=== PATIENT | female | born 1965 | race Caucasian/White ===

== ENCOUNTER 2017-03-18 17:34 | Inpatient (IN) | payer OTHER ==
[~2017-03-18] VITALS: Ht 154.9 cm; Wt 75.1 kg
[~2017-03-18 17:34] MED LIST: ACYC200C PO; LISI10TA2 PO; VENL37.57 PO
[2017-03-18 17:47] VITALS: BP 92/60; PULSE 108; RESP 23; O2SAT 97
--- NOTE | 2017-03-18 17:47 | ED.REPORT ---
HPI-Dyspnea / Wheezing Date of Service Mar 18, 2017 ED Provider: History of Present Illness: sick for 5 days, started with cough. Went to the urgent care 2 days ago, given azithromycin but did not fill. returned today worse. primary care in [facility]. normally healthy no hx of asthma Nursing Notes Stated Complaint: SHORTNESS OF BREATH Nursing Notes Reviewed: Yes Allergies: Coded Allergies: No Known Allergies (Unverified Allergy, Unknown, 03/18/17) Scheduled Cholecalciferol (Vitamin D3) (Vitamin D3) 1,000 Unit Tab.chew 1,000 UNIT PO DAILY Lisinopril (Lisinopril) 10 Mg Tablet 10 MG PO DAILY Multivitamin (Once Daily) 1 Each Tablet 1 EACH PO DAILY Venlafaxine ER (Venlafaxine ER) 37.5 Mg Cap.er.24h 37.5 MG PO QAM Scheduled PRN Acetaminophen (Acetaminophen) 500 Mg Tablet 500-1,000 MG PO Q6H PRN PRN For Pain Acyclovir (Acyclovir) 400 Mg Tablet 400 MG PO TID x 7 days PRN PRN herpes Ibuprofen (Ibuprofen) 600 Mg Tablet 600 MG PO q6 hours PRN PRN For Pain General Time Seen by MD: 17:47 Chief Complaint Shortness of breath Hx Obtained From: Patient Sudden in Onset?: No Past Medical History Past Medical History Reports: Hypertension, Denies: Asthma, Diabetes mellitus Past Surgical History denies Smoking History Current Every Day Smoker (1/2 pack a day for 35 plus years) Social History Alcohol Use: 1-3 per day (likes white armenian) Drug Use: Denies drug use Occupation lives with partner no work or school 03/18/2017 Ambulatory Status Independent Review of Systems Basic Review of Systems Eyes: Vision NL, No discharge Endocrine: No cold intolerance, No heat intolerance, No weight gain, No weight loss Psychiatric: Normal thought content Physical Exam Initial Vital Signs Vital Signs (First) Date Time Temp Pulse Resp B/P Pulse Ox O2 Delivery O2 Flow Rate FiO2 03/18/17 17:47 37.1 108 23 92/60 97 Room Air Initial VS: Reviewed, Vital signs abnormal Head / Eyes: Atraumatic, Normocephalic, PERRL ENT: Mucous membranes moist, Conjunctiva normal, No scleral icterus Abdomen / GI: Soft, Non-tender, No guarding, No rebound, No distention Back: No CVA tenderness Lymphatic: No lymphadenopathy Extremities: Vascular intact, Neuro intact, No swelling, No tenderness Skin: Warm, Dry, No cyanosis Neurologic: Alert, Oriented, Nonfocal Psychiatric: Mood/affect normal, Behavior normal, Normal thought content General/Constitutional: Awake, Alert Distress / Hydration: Positive: Distress mild Respiratory / Chest: Atraumatic Diminished Breath Sounds: Positive: Decreased bilateral Cardiovascular: Heart rate NL Heart Rate / Rhythm: Positive: Tachycardia Abdomen: Atraumatic, Soft, Non-tender Interpretation & Diagnostics Lab Results Interpretation Result Diagram: 03/18/17 1801 03/18/17 1801 Test 03/18/17 18:01 03/18/17 19:24 White Blood Count 14.2th/mm3 (3.8-10.1) Red Blood Count 3.91mil/mm3 (3.90-5.20) Hemoglobin 12.8g/dL (12.0-15.6) Hematocrit 36.6% (35.0-46.0) Mean Corpuscular Volume 93.6fL (81-100) Mean Corpuscular Hemoglobin 32.7pg (27.0-35.0) Mean Corpuscular Hemoglobin Concent 35.0% (32.0-37.0) Red Cell Distribution Width 12.0% (12.3-15.4) Platelet Count 259bil/L (150-400) Neutrophils (%) (Auto) 86.7% (40-74) Lymphocytes (%) (Auto) 7.6% (14-46) Monocytes (%) (Auto) 3.9% (4-12) Eosinophils (%) (Auto) 0.4% (0-5) Basophils (%) (Auto) 0.1% (0-3) Hold Purple Top Tube Received (Received) Hold Blue Top Tube Received (Received) Sodium Level 123mEq/L (134-144) Potassium Level 3.7mEq/L (3.5-5.2) Chloride Level 84mEq/L (97-108) Carbon Dioxide Level 21mmol/L (18-29) Blood Urea Nitrogen 13mg/dL (6-24) Creatinine 1.11mg/dL (0.57-1.00) Estimat Glomerular Filtration Rate 74mL/min (>59) Glucose Level 124mg/dL (60-99) Calcium Level 9.2mg/dL (8.5-10.1) Total Bilirubin 0.4mg/dL (0.0-1.2) Aspartate Amino Transf (AST/SGOT) 45U/L (0-50) Alanine Aminotransferase (ALT/SGPT) 57U/L (0-32) Alkaline Phosphatase 129U/L (25-150) Troponin T < 0.010ug/L (0.0-0.011) Pro-B-Type Natriuretic Peptide 251.1pg/mL (0-249) Total Protein 8.1g/dL (6.4-8.4) Albumin 3.6g/dL (3.4-5.0) Hold Red Top Tube Received (Received) Hold Bluebell Top Tube Received (Received) Lactic Acid Level 1.6mmol/L (0.4-2.0) CT Chest Interpretation PROCEDURE: CT ANGIO CHEST PULMONARY EMBOLISM ([id number]) INDICATIONS: sob TECHNIQUE: After the administration of intravenous contrast, 2 mm thick sections acquired from the pulmonary apices to the posterior costophrenic angles. 3-dimensional maximum intensity projection (MIP) coronal and sagittal reformats were then acquired through the thorax. For radiation dose reduction, the following was used: automated exposure control, adjustment of mA and/or kV according to patient size. COMPARISON: [facility], CR, XR CHEST 2VW, 03/18/2017, 18:16. FINDINGS: Image quality: Excellent. Pulmonary arteries: Pulmonary arteries are normal in size, and demonstrate no intraluminal filling defects to suggest central pulmonary embolism. Lungs and pleura: Prominent patchy consolidative opacity is present within the left upper lobe extending to the lingula. Small appearance of similar opacity is also noted in the medial left lower lobe. Air bronchograms are present. This corresponds to finding on chest x-ray dated 03/18/17. Mediastinum: Heart size is normal, without pericardial effusion. No mediastinal or hilar adenopathy. However, multiple mediastinal lymph nodes are present. Thoracic aorta is normal in caliber and enhancement. Esophagus is normal in caliber, without hiatal hernia. Bones and chest wall: No suspicious bony lesions. Ribs and thoracic spine appear intact throughout. Thyroid gland is unremarkable. No axillary or supraclavicular adenopathy. Abdomen: Hepatic cyst is noted. Otherwise, visualized upper abdominal solid organs appear normal in the early arterial phase of enhancement. IMPRESSION: 1. No evidence of pulmonary embolism. 2. Prominent consolidative opacity within the left upper lobe extending to the lingula and medial left lower lobe. Finding appears most suggestive of infection or inflammation such as pneumonia. Recommend interval followup study to resolution and exclude presence of underlying mass lesion. Dictated by: Beatrice Alvarado M.D. on 03/18/2017 at 20:51 Approved by: Beatrice Alvarado M.D. on 03/18/2017 at 20:53 Re-Eval/Medical Decision Med Decision/Clinical Course 51 year old female from Urgent care presents for sob. Patient was seen 2 days ago and did not get the medication filled. No sign of any PE. Discharge & Departure Impression: Primary Impression: Pneumonia Laterality: left Lung location: upper lobe of lung Disposition: ADMITTED TO HOSPITAL Referrals: Prakash Subramanian MD (PCP) EDSupervising Provider for APC: Mikal Richmond MD copies to: Prakash Subramanian MD, Sue ARNP Mar 18, 2017 17:47
[2017-03-18] MEDS ORDERED: 0.9% Sodium Chloride 1,000 ML IV ONE ×2 (18:00)
--- NOTE | 2017-03-18 18:34 | DRSVH ---
PROCEDURE: X-RAY CHEST, TWO VIEWS ([id number]) INDICATIONS: SHORTNESS OF BREATH TECHNIQUE: 2 views of the chest were acquired. COMPARISON: None. FINDINGS: Surgical changes and devices: None. Lungs and pleura: There is increased consolidative opacity overlying the left upper lobe extending to the lingula. Mediastinum: Mediastinal contours are normal. Heart size is normal. Bones and chest wall: No suspicious bony abnormalities. Soft tissues appear unremarkable. IMPRESSION: Left upper/lingula or opacity. This may represent pneumonia. Recommend interval follow to document resolution and exclude underlying mass lesion. Dictated by: Beatrice Alvarado M.D. on 03/18/2017 at 18:31 Approved by: Beatrice Alvarado M.D. on 03/18/2017 at 18:32
[2017-03-18] MEDS ORDERED: cefTRIAXone Inj 2,000 MG in Dextrose 5% Minibag Plus 50 ML IV ONE (18:50)
[2017-03-18] MEDS ORDERED: Azithromycin Inj 500 MG in Dextrose 5% w/Vial Mate 250 ML IV ONE (18:50)
[2017-03-18 18:55] VITALS: BP 113/84; PULSE 111; RESP 20; O2SAT 94
[2017-03-18 19:34] LABS: BASOPHILS % (AUTO) 0.1 % (0-3); MONOCYTES % (AUTO) 3.9 % (4-12); Mean Corpuscular Volume 93.6 fL (81-100)
[2017-03-18 19:40] LABS: EOSINOPHILS % (AUTO) 0.4 % (0-5); Mean Corpuscular Hemoglobin 32.7 pg (27.0-35.0); NEUTROPHILS % (AUTO) 86.7 % (40-74); Platelet Count 259 bil/L (150-400)
[2017-03-18 19:52] LABS: TROPONIN T < 0.010 ug/L (0.0-0.011)
[2017-03-18 20:17] VITALS: BP 128/82; PULSE 105; RESP 24; O2SAT 95
--- NOTE | 2017-03-18 20:55 | DRSVH ---
PROCEDURE: CT ANGIO CHEST PULMONARY EMBOLISM ([id number]) INDICATIONS: sob TECHNIQUE: After the administration of intravenous contrast, 2 mm thick sections acquired from the pulmonary api fabian to the posterior costophrenic angles. 3-dimensional maximum intensity projection (MIP) coronal a nd sagittal reformats were then acquired through the thorax. For radiation dose reduction, the follo wing was used: automated exposure control, adjustment of mA and/or kV according to patient size. COMPARISON: [facility], CR, XR CHEST 2VW, 03/18/2017, 18:16. FINDINGS: Image quality: Excellent. Pulmonary arteries: Pulmonary arteries are normal in size, and demonstrate no intraluminal filling d efects to suggest central pulmonary embolism. Lungs and pleura: Prominent patchy consolidative opacity is present within the left upper lobe extend ing to the lingula. Small appearance of similar opacity is also noted in the medial left lower lobe. Air bronchograms are present. This corresponds to finding on chest x-ray dated 03/18/17. Mediastinum: Heart size is normal, without pericardial effusion. No mediastinal or hilar adenopathy . However, multiple mediastinal lymph nodes are present. Thoracic aorta is normal in caliber and enh ancement. Esophagus is normal in caliber, without hiatal hernia. Bones and chest wall: No suspicious bony lesions. Ribs and thoracic spine appear intact throughout. Thyroid gland is unremarkable. No axillary or supraclavicular adenopathy. Abdomen: Hepatic cyst is noted. Otherwise, visualized upper abdominal solid organs appear normal in the early arterial phase of enhancement. IMPRESSION: 1. No evidence of pulmonary embolism. 2. Prominent consolidative opacity within the left upper lobe extending to the lingula and medial lef t lower lobe. Finding appears most suggestive of infection or inflammation such as pneumonia. Recomme nd interval followup study to resolution and exclude presence of underlying mass lesion. Dictated by: Beatrice Alvarado M.D. on 03/18/2017 at 20:51 Approved by: Beatrice Alvarado M.D. on 03/18/2017 at 20:53
[2017-03-18] MEDS ORDERED: Alum-Mag Hydrox-Simeth 30 mL Suspension PO PRN (21:00)
[2017-03-18] MEDS ORDERED: Polyethylene Glycol (PEG) 17 Gm Powder PO PRN (21:00)
[2017-03-18] MEDS ORDERED: LISI10TA PO (21:10)
[2017-03-18] MEDS ORDERED: ACYC400T2 PO (21:10)
[2017-03-18] MEDS ORDERED: ACET-171 PO (21:10)
[2017-03-18] MEDS ORDERED: MULT-666 PO (21:10)
[2017-03-18] MEDS ORDERED: VENL-57 PO (21:10)
[2017-03-18] MEDS ORDERED: IBUP-1827 PO (21:10)
[2017-03-18] MEDS ORDERED: CHOL10008 PO (21:10)
--- NOTE | 2017-03-18 21:11 | PCM.HPMED ---
Subjective Date of Service Mar 18, 2017 Primary Provider: Admitting Physician: Michele Cehn MD Primary Care Physician: Marquita Attending Physician: Michele Chen MD Chief Complaint: Fevers chills short of breath History of Present Illness: Jaz Powell , 51-year-old woman with history of depression, hypertension, and 6 days of feeling warm, cold sweats, and diagnosed 2 days ago with pneumonia given a prescription for azithromycin from urgent care, however did not fill the prescription. Today she reports feeling worse and went to the emergency department where she reports fever, chills, shortness of breath, cough , cold sweats, headache, lightheadedness, nausea. She has not been around anybody else with similar symptoms, she has been in every day smoker since 14 years old, with a family history of cancer in her mother unknown type. No recent travel, denies any rashes, dysuria, no chest pain, no constipation or diarrhea. In the ER, initial vital signs were 37.1, 108, 23, 92/60, 97% on room air, she received IV fluids roughly 3 hour later is temperature had gone up to 39.5, remained tachycardia at 105, respiratory rate 24, 128/82, 95% on room air. WBC 14.2, neutrophils 86.7%, sodium 123, chloride 84, creatinine 1.11, glucose 124, lactic acid 1.6, ALT 57, BNP 251, troponin negative. X-ray was performed showed left upper/lingula opacity, [place] chest CT was performed and showed no evidence of pulmonary embolism, however "consolidative opacity in the left upper lobe descending to the lingula and medial left lower lobe... Suggestive of infection or inflammation such as pneumonia." She was given 2 L IV fluid, 500 mg IV azithromycin, and 2 g ceftriaxone IV, admitted for community-acquired pneumonia and sepsis. Review of Systems: A comprehensive review of systems was conducted with the patient and found to be negative except as above in the history of presenting illness. Allergies Coded Allergies: No Known Allergies (Unverified Allergy, Unknown, 03/18/17) Home Medications Scheduled Lisinopril (Lisinopril) 10 Mg Tablet 10 MG PO DAILY Venlafaxine (Venlafaxine) 37.5 Mg Tablet 37.5 MG PO DAILY Scheduled PRN Acyclovir (Acyclovir) 200 Mg Capsule 200 MG PO PRN PRN PRN HERPES PMH Depression Hypertension Herpes zoster Surgical History Tubal ligation Family History Mother in her 80s of unknown type of cancer Father in his 70s complications from alcoholism Social History Occupation: administrative support assistant Hx Alcohol Use: Yes (2-3/day white russians ) Hx Substance Use: No Hx Tobacco Use: Yes (everyday since 14 years old) Smoking Status: Current Every Day Smoker Living Arrangement: with Friends/Roommate ("domestic partner") Exam Vital Signs Vital Sign - Last Date Time Temp Pulse Resp B/P Pulse Ox O2 Delivery O2 Flow Rate FiO2 03/18/17 20:17 39.5 105 24 128/82 95 Room Air Exam General: Laying in bed, somnolent, mumbling HEENT: Normocephalic, atraumatic, EOMI grossly, mucous membranes dry, neck supple without lymphadenopathy, PERRLA, 1 cm nodule inferior left oral labia. Cardiovascular: Tachycardic, regular rhythm no clicks murmurs rubs, peripheral pulses 2/4 equal bilaterally Pulmonary: Expiratory rhonchi left greater than right. Abdominal: Soft to palpation, bowel sounds present 4, no hepatosplenomegaly. Negative rebound. Extremities: No edema appreciated. No tenderness, asymmetry. Neuro: Neurologically grossly intact, strength is equal bilaterally upper and lower extremities. MSK: Able to move extremities on their own volition, strength 5 out of 5 equal bilaterally to upper and lower extremities. Psychiatric: Oriented to person place time and situation, speech is slow, low volume, occasionally does not finish sentences and needs to be reminded of question. Lab and Diagnostics Result Diagram: 03/18/17 1801 03/18/17 1801 X-Rays, CTs and MRIs CT thorax angiogram performed 03/18/2017 IMPRESSION: 1. No evidence of pulmonary embolism. 2. Prominent consolidative opacity within the left upper lobe extending to the lingula and medial left lower lobe. Finding appears most suggestive of infection or inflammation such as pneumonia. Recommend interval followup study to resolution and exclude presence of underlying mass lesion. Dictated by: Beatrice Alvarado M.D. on 03/18/2017 at 20:51 Chest x-ray performed 03/18/2017 IMPRESSION: Left upper/lingula or opacity. This may represent pneumonia. Recommend interval follow to document resolution and exclude underlying mass lesion. Dictated by: Beatrice Alvarado M.D. on 03/18/2017 at 18:31 Assessment & Plan 51-year-old woman with history of hypertension depression presents with almost a week of worsening fevers chills shortness of breath now cough found to be hypotensive, tachypneic, tachycardic, elevated white count with x-ray and CT suggestive of pneumonia. Acute severe Sepsis, present on admission, active White count 14.2 with left shift, heart rate 105, blood pressure 92/60, respiratory rate 23, x-ray and chest CT suggestive of pneumonia Blood pressure responded to 2 L IV fluid remained tachycardic and febrile Blood cultures 2, IV fluids, normal saline 125 mL per hour UA + Culture pending. Acute community-acquired pneumonia, POA, active. Evidenced by elevated white blood cell count, fevers, chills, cough, and x-ray and CT consolidation suggesting infection. Urine Legionella and strep pneumo antigen MRSA screen Ceftriaxone 2 g IV every 24 hours, first dose given in the emergency department Azithromycin 500 mg by mouth daily 7 days, first dose given IV in the emergency department. (Last dose 03/25/2017) Acetaminophen 650 mg every 6 hours as needed for fever Follow-up chest x-ray 6-8 weeks for resolution as mass cannot be ruled out. Procalcitonin Acute Hyponatremia, present on admission, active Serum sodium 123, attributed to lung infection and poor oral intake previous days. IV normal saline as above Normal diet Reevaluate with a.m. CMP Acute kidney injury, present on admission, active Serum creatinine was 1.11, most likely due to hypotension and poor oral intake Received 2 L fluid boluses, 100 mL per hour maintenance fluid Reevaluate with a.m. CMP. Acute Elevated transaminase, present on admission, active ALT 57, attributed to hypotension, possibly sign of chronic alcoholism and developing cirrhosis though less likely. Reevaluate with a.m. CMP If remains elevated consider hepatitis panel Chronic Hypertension, not present on admission, stable Hold patient's lisinopril while being treated for sepsis Depression POA, stable Continue venlafaxine from outpatient Tobacco abuse, chronic, active Tobacco cessation education Nicotine patch daily Follow-up chest x-ray 6-8 weeks for resolution of opacities Concern for alcohol withdrawal, POA, stable Patient reportedly drinks 2-3 drinks a night, last drink was described as being a couple of days ago Monitor for signs and symptoms of alcohol withdrawal, if they present themselves initiate CIWA protocol. Patient admitted under inpatient status with expected length of stay > 2 midnights for severity of present symptoms, complexities of treatment plan and risk for adverse events Pain Evaluation: Adequate Pain Control GI Prophylaxis: Not indicated VTE Prophylaxis: Sub-Q Heparin (Unfractionated) Resuscitation Status: CPR: Attempt Resuscitation Attending Statement The patient was seen and examined together with Dr. Jon on 03/18 and I agree with the history, exam and plan as outlined in the note above. Jose Ramon Winston DO Mar 18, 2017 21:11 Michele Chen MD Mar 18, 2017 23:01 Michele Chen MD Mar 18, 2017 23:01
[2017-03-18 21:30] VITALS: BP 121/82; PULSE 111; RESP 16; O2SAT 98
[2017-03-18] MEDS ORDERED: Acyclovir 400 mg Tablet PO PRN (21:30)
--- NOTE | 2017-03-18 21:30 | NUR ---
Admit Pt admitted to room 249-1 via stretcher at 2130. Pt ambulated to bed. VSS except for temp of 39.2 Celsius and HR 111. Pt complained of body aches and a headache. Tylenol given.
[2017-03-18 21:44] LABS: Magnesium 1.8 mg/dL (1.6-2.6)
[2017-03-18 21:50] VITALS: PULSE 108
[2017-03-18] MEDS: 0.9% Sodium Chloride 1,000 ML IV SCH (22:16)
[2017-03-19] VITALS (15 sets, daily range): BP systolic 99–135; BP diastolic 61–87; PULSE 87–104; RESP 16–22; O2SAT 85–97
[2017-03-19] MEDS: Heparin 5,000 Unit/mL Inj SUBQ SCH ×3 (00:53→16:20)
[2017-03-19] MEDS: Albuterol 2.5 mg/3 mL Inhalation Solution NEB SCH ×6 (01:16→20:01)
[2017-03-19 03:21] LABS: APPEARANCE,URINE CLEAR (CLEAR,HAZY); COLOR,URINE YELLOW (YELLOW); OCCULT BLOOD,URINE LARGE (NEGATIVE); PH,URINE 6.5 (5.0-8.0)
[2017-03-19 06:15] LABS: BASOPHILS % (AUTO) 0.1 % (0-3); EOSINOPHILS % (AUTO) 0 % (0-5); MONOCYTES % (AUTO) 3.6 % (4-12); Mean Corpuscular Hemoglobin 32.7 pg (27.0-35.0); Mean Corpuscular Volume 93.1 fL (81-100); NEUTROPHILS % (AUTO) 85.9 % (40-74); Platelet Count 226 bil/L (150-400)
[2017-03-19] MEDS ORDERED: cefTRIAXone Inj 2,000 MG in Dextrose 5% Minibag Plus 50 ML IV SCH (08:30)
[2017-03-19] MEDS: 0.9% Sodium Chloride 1,000 ML IV SCH ×3 (08:58→16:58)
[2017-03-19] MEDS: Venlafaxine XR 37.5 mg ER24 Capsule PO SCH (08:58)
--- NOTE | 2017-03-19 11:07 | CONS ---
[address] [address] CONSULTATION REPORT PATIENT: SOFIA HENDERSON : 1965 MR#: [id number] ADMIT: 03/18/2017 JOB ID: [id number] DATE OF SERVICE: 03/19/2017 INFECTIOUS DISEASE CONSULTATION: I thank Dr. Tatum for this timely consult. REASON FOR CONSULTATION: Legionnaire disease. HISTORY OF PRESENT ILLNESS: The patient is a 51-year-old woman with hypertension, depression and ongoing cigarette smoking. She was in her usual state of health until about five days ago when she developed malaise that was followed shortly thereafter by the development of fevers, chills, cough and shortness of breath and nausea, vomiting and possible subtle confusion. She was seen in the clinic to on Saturday, March 16 after this illness that proceeded for two or three days and was evaluated and apparently at that time, an antibiotics was prescribed though we are still searching for those records. The patient reports she was not aware that an antibiotic was prescribed, and in fact, did not take any. Some notes in the record indicate that this was azithromycin but in any event, the patient did not pick it up and even though it was prescribed so obviously had no benefit. She continued to worsen with more fevers, chills, shortness of breath, dry cough, nausea, vomiting and eventually diarrhea was added to her symptomatology. She reports no contact with ill persons and that everybody in her family is currently healthy. She has had no travel or unusual exposures. She does keep a rain barrel in her backyard which collects water for watering the garden but she has not been dipping into the rain barrel at all as there has been adequate rainfall for garden so far. She did change a filter on her refrigerator a couple weeks ago, however. No travel. No staying in hotels. No other unusual exposures have been noted. She has no preceding history of pneumonia, but as noted, she is a smoker. We found the appropriate outpatient notes. The patient was seen on the and was diagnosed with community-acquired pneumonia. 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 PAST MEDICAL HISTORY: 1. Depression. 2. Hypertension. 3. History of recurrent perirectal herpes for which she takes periodic acyclovir. Her only other scheduled medicines are lisinopril and venlafaxine. SOCIAL HISTORY: The patient lives with her family. She is a cigarette smoker and has been since she was a teenager. She does not currently drink any alcohol. 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 FAMILY HISTORY: Negative for tuberculosis in first or second degree relatives. REVIEW OF SYSTEMS: Was done. The patient has some headache with cough only. She notes that her eyes feel "tired" but her vision is otherwise normal. No sore throat. She has a cough which is frequent but nonproductive. No pleuritic chest pain of note. She has had nausea and vomiting really since the onset of this illness some five or six days ago. She also has had diarrhea for the last couple days though no abdominal pain per se. She has had diminished appetite, myalgias, arthralgias are noted. No rash. No swelling of the extremities. Remainder of the review of systems is negative. PHYSICAL EXAMINATION: Reveals an afebrile woman in no acute distress. She is 37.4 now but she was 39.5 last night shortly after admission. Pulse 89, respiratory rate 20, blood pressure 129/73. She is saturating 90% on room air and she was 99% on 2 L. Mental status is clear this morning, though the patient looks very tired and is wrapped in blankets because she is chilling so much, but she is oriented x3. Head without trauma. Sinuses nontender. Eyes with mild conjunctival hyperemia. Nose appears normal. Oral cavity, no thrush or hairy leukoplakia. Neck supple without adenopathy. Lungs: Decreased breath sounds and crackles much more so on the left side. Cardiac tones: Regular rate and rhythm without murmur. Abdomen is slightly distended with diffuse mild tenderness. No focal mass, hepatosplenomegaly or ascites is noted. She does not have a Naranjo catheter. Her extremities are warm and well perfused without cellulitis, edema or synovitis. Neurologically she is grossly intact, but looks and feels very weak. LABORATORIES: Include white blood count 11,000. It was 14 last night in the ED with left shift. Creatinine is 0.54. ALT is 58. It was 57 last night. AST is 50. Alk phos 107. Albumin 2.8. Urinalysis 0-50 white cells. Urine Legionella antigen positive. Urine pneumococcal antigen negative. MRSA screen negative. Blood cultures negative. IMAGING: CT scan of the chest was carefully reviewed on the view screen. It shows extensive consolidation in the left lung. There is little or no infiltrate on the right side. IMPRESSION: This patient presents with a relatively classic case of Legionnaire disease. She has prominent GI symptoms, hyponatremia and a nonproductive cough. This has all been associated with fevers, chills and myalgias and there was a report of confusion earlier, though it must not have been much in evidence in the clinic on the . She was prescribed azithromycin which was most appropriate on the but did not pickling solution maker the prescription as she was apparently not even aware it was written. She now has a fairly extensive left-sided infiltrate but is not especially hypoxic and will likely do well without transfer to the ICU. RECOMMENDATIONS: 1. Azithromycin 500 a day IV until she can tolerate p.o. and then continue wound on with that 500 mg a day dose for 10 days. 2. EKG did today to make sure there is no QT prolongation. 3. HIV and hepatitis C antibodies. 4. Discontinue ceftriaxone as it is of no value against Legionnaire disease. 5. This case will be reported to the County through the lab and they will be contacting the patient. We made her aware of that. 6. No isolation is required as Legionnaire is not transmitted from person to person. Thank you very much for this consult.
--- NOTE | 2017-03-19 12:55 | NUR ---
Social Work-screening: Data:EMR reviewed. Pt is a 51 y/o female who was admitted on 03/18/17 for pneumonia per H&P. Pt's insurance is [employer] and PCP is not listed. EMR reviewed. Pt resides at home with her so where she remains independent with ADLS. Pt currently on IV abx, but will not need these at discharge per MD. Pt has been up independent in her room, per RN notes. Pt's family to provide transport home. No anticipated discharge needs. SW will continue to follow if needs arise. Assessment:pt who is independent at baseline. Plan:Pt to discharge home when medically stable via POV. No anticipated discharge needs. SW will continue to follow if needs arise. HARJINDER Craven
--- NOTE | 2017-03-19 12:58 | NUR ---
Myra PALAFOX notified via text of temsofia 39.5. Tylenol given
--- NOTE | 2017-03-19 16:59 | PCM.PNMED ---
Subjective Date of Service Mar 19, 2017 Subjective Patient notes she still feels very weak and nauseated but drastically improved from one day prior on presentation. Still having some sweats and chills but is decreased in frequency. Exam Vital Signs Vital Sign - Last Date Time Temp Pulse Resp B/P Pulse Ox O2 Delivery O2 Flow Rate FiO2 03/19/17 15:45 94 20 93 Room Air 03/19/17 13:20 38.0 03/19/17 12:25 135/87 2.00 Intake and Output 03/18/17 03/18/17 03/19/17 Cumulative From/Thru 15:00 23:00 07:00 03/18/17 17:47 - 03/19/17 06:01 Intake Total 2999 ml 1267 ml 4266 ml Output Total 975 ml 975 ml Balance 2999 ml 292 ml 3291 ml Intake Oral 425 ml 425 ml IV Total 2999 ml 842 ml 3841 ml Output Urine Total 575 ml 575 ml Urine/Stool Mix 400 ml 400 ml General: Alert, Oriented X3, Cooperative, Moderate Distress Nose: Other (nasal cannula in place) Chest & Lungs: Chest Wall Normal Cardiovascular: Regular Rate/Rhythm Extremities: No cyanosis/clubbing/edma bilat Neurological: Grossly Neurologically Intact IVs and Medications Medications Reviewed: Medications were reviewed in detail Lab and Diagnostics Result Diagram: 03/19/17 0609 03/19/17 0609 X-Rays, CTs and MRIs CT thorax angiogram performed 03/18/2017 IMPRESSION: 1. No evidence of pulmonary embolism. 2. Prominent consolidative opacity within the left upper lobe extending to the lingula and medial left lower lobe. Finding appears most suggestive of infection or inflammation such as pneumonia. Recommend interval followup study to resolution and exclude presence of underlying mass lesion. Dictated by: Beatrice Alvarado M.D. on 03/18/2017 at 20:51 Chest x-ray performed 03/18/2017 IMPRESSION: Left upper/lingula or opacity. This may represent pneumonia. Recommend interval follow to document resolution and exclude underlying mass lesion. Dictated by: Beatrice Alvarado M.D. on 03/18/2017 at 18:31 Assessment & Plan 51-year-old woman with history of hypertension depression presents with almost a week of worsening fevers chills shortness of breath now cough found to be hypotensive, tachypneic, tachycardic, elevated white count with x-ray and CT suggestive of pneumonia. Acute severe Sepsis, present on admission, active White count 14.2 with left shift, heart rate 105, blood pressure 92/60, respiratory rate 23, x-ray and chest CT suggestive of pneumonia Blood pressure responded to 2 L IV fluid remained tachycardic and febrile Blood cultures 2, IV fluids, normal saline 125 mL per hour UA + Culture pending. Urine culture is now demonstrated lesion now likely cause of patient's septic condition. Legionella pneumonia active. Evidenced by elevated white blood cell count, fevers, chills, cough, and x-ray and CT consolidation suggesting infection. Urine Legionella positive Patient has now been continued only on azithromycin, ceftriaxone discontinued as needed provisional type pneumonia is. Continue Acetaminophen 650 mg every 6 hours as needed for fever Procalcitonin Acute Hyponatremia, present on admission, active Serum sodium 123 on admission and improved to 125 this morning. Follow-up afternoon levels still pending, adjust intravenous fluids accordingly currently running in 125 mL per hour. Acute kidney injury, present on admission, active Serum creatinine was 1.11, most likely due to hypotension and poor oral intake Received 2 L fluid boluses, 125 mL per hour maintenance fluid Acute Elevated transaminase, present on admission, active ALT 57, attributed to hypotension, possibly sign of chronic alcoholism and developing cirrhosis though less likely. Likely related to Legionella infection continue to trend. Chronic Hypertension, not present on admission, stable Hold patient's lisinopril while being treated for sepsis Depression POA, stable Continue venlafaxine from outpatient Tobacco abuse, chronic, active Tobacco cessation education Nicotine patch daily Follow-up chest x-ray 6-8 weeks for resolution of opacities Concern for alcohol withdrawal, POA, stable Patient reportedly drinks 2-3 drinks a night, last drink was described as being a couple of days ago Monitor for signs and symptoms of alcohol withdrawal, if they present themselves initiate CIWA protocol. No evidence of alcohol withdrawal overnight Patient admitted under inpatient status with expected length of stay > 2 midnights for severity of present symptoms, complexities of treatment plan and risk for adverse events Pain Evaluation: Adequate Pain Control GI Prophylaxis: Not indicated VTE Prophylaxis: Sub-Q Heparin (Unfractionated) Resuscitation Status: CPR: Attempt Resuscitation Time spent 30 minutes Mj Tatum DO Mar 19, 2017 16:59 Mj Tatum DO Mar 19, 2017 16:59
--- NOTE | 2017-03-19 17:41 | NUR ---
IV rate changed IV rate to 100 ml/hr
--- NOTE | 2017-03-19 17:43 | NUR ---
notified K 3.0
--- NOTE | 2017-03-19 17:58 | NUR ---
Resp/Temp Pt changed over from mask to NC. O2 2liter until 1700 when sats dropped to 90 % on 2 liters. Increased O2 to 3 liters, provided extension tubing so didn't need to remove canula to reach BR. T-max 39.5, tylenol given and no further temps noted remaining of shift. Health dept did speak to patient on phone around 1100.
[2017-03-19] MEDS ORDERED: Potassium Chloride Inj 30 MEQ in Dextrose 5% 500 ML IV ONE (18:00)
[2017-03-20] VITALS (11 sets, daily range): BP systolic 118–137; BP diastolic 70–87; PULSE 68–85; RESP 16–19; O2SAT 90–100
[2017-03-20] MEDS: Heparin 5,000 Unit/mL Inj SUBQ SCH ×3 (00:15→16:51)
[2017-03-20] MEDS: Albuterol 2.5 mg/3 mL Inhalation Solution NEB SCH ×6 (00:21→21:00)
[2017-03-20] MEDS: 0.9% Sodium Chloride 1,000 ML IV SCH ×3 (05:40→17:58)
--- NOTE | 2017-03-20 06:14 | NUR ---
Respiratory Pt states she gets short of breath during exertion. Pt lung sounds are more congested than beginning of shift. Encouraged pt to cough and deep breathe. Pt on 3L oxymask overnight due to patient mouth breathing during sleep.
[2017-03-20 06:47] LABS: BASOPHILS % (AUTO) 0.2 % (0-3); EOSINOPHILS % (AUTO) 0.1 % (0-5); MONOCYTES % (AUTO) 6.3 % (4-12); Mean Corpuscular Volume 93.9 fL (81-100); NEUTROPHILS % (AUTO) 80.2 % (40-74); Platelet Count 248 bil/L (150-400)
[2017-03-20] MEDS: Venlafaxine XR 37.5 mg ER24 Capsule PO SCH (08:24)
--- NOTE | 2017-03-20 14:18 | PROG NOTE ---
[address] [address] PROGRESS NOTE PATIENT: SOFIA HENDERSON : 1965 MR#: [id number] ADMIT: 03/18/2017 JOB ID: [id number] DATE: 03/20/2017 INFECTIOUS DISEASE FOLLOW UP NOTE: REASON FOR FOLLOWUP: Legionnaire disease. INTERVAL HISTORY: Overnight, the patient reports a considerable improvement. She no longer has fevers or chills. She reports she still has a cough especially with deep inspiration but less short of breath than previously. She is still requiring some supplemental oxygen to keep her oxygen saturations up, however. Her nausea and vomiting have ended, but she continues to have diarrhea. She is tolerating her azithromycin fairly well. PHYSICAL EXAMINATION: Reveals an afebrile woman with face mask oxygen in place. She has been afebrile less than 24 hours but approaching 24 hours at this point. She was spiking as high as 39.5 yesterday around noon, however. Current temperature 36.9, pulse 80, respiratory rate 18, blood pressure 118/70, saturating 90% on room air and about 100% on 3 L which she is currently receiving via face mask. She is alert and alert oriented in no acute distress. Oral cavity negative. Lungs with decreased breath sounds on the left side and scattered rales and rhonchi throughout that left side of the chest. Cardiac tones: Regular rate and without murmur. Abdomen is soft, nontender. No skin rash. LABORATORIES: Include white count 9500, having completely normalized. Still with 80% segs, though. Creatinine 0.4. ALT is 48. Urinalysis without white cells. Hepatitis C is negative. Micro studies include negative blood cultures, negative MRSA screen of the nares but, of course, she had the all important positive Legionella urine antigen. QTc interval on the EKG 0.44 which is very reasonable. IMPRESSION: 1. This patient has classic Legionnaire disease. She has already improved considerably on azithromycin. The azithromycin can be changed over to oral at any time with an expected total course of 10 days which would take us through March 28. 2. Once the patient is able to maintain her sats on room air and walk around the room, I think she would be eligible for discharge with a plan to take azithromycin 500 a day through the .
--- NOTE | 2017-03-20 15:03 | PCM.PNMED ---
Subjective Date of Service Mar 20, 2017 Subjective Patient feeling significantly improved, however certainly not back to baseline. Still requiring oxygen for saturations. Appetite is poor but improving she is tolerating some food with every meal. Denying fever or chills currently. Also denies chest pain or palpitations. Exam Vital Signs Vital Sign - Last Date Time Temp Pulse Resp B/P Pulse Ox O2 Delivery O2 Flow Rate FiO2 03/20/17 12:30 78 18 90 Room Air 03/20/17 08:33 36.9 118/70 3.00 Intake and Output 03/19/17 03/19/17 03/20/17 Cumulative From/Thru 15:00 23:00 07:00 03/18/17 17:47 - 03/20/17 06:35 Intake Total 1585 ml 1978 ml 7829 ml Output Total 1550 ml 2525 ml Balance 35 ml 1978 ml 5304 ml Intake Oral 600 ml 500 ml 1525 ml IV Total 985 ml 1478 ml 6304 ml Output Urine Total 1550 ml 2125 ml Urine/Stool Mix 400 ml # Voids 2 2 # Bowel Movements 0 2 2 Exam General: Alert, Oriented X3, Cooperative, Moderate Distress Nose: Other (nasal cannula in place) Chest & Lungs: Coarse breath sounds diffusely most pronounced in left lower quadrant Cardiovascular: Regular Rate/Rhythm Extremities: No cyanosis/clubbing/edma bilat Neurological: Grossly Neurologically Intact IVs and Medications Medications Reviewed: Medications were reviewed in detail Lab and Diagnostics Result Diagram: 03/20/1761703/20/1718 X-Rays, CTs and MRIs CT thorax angiogram performed 03/18/2017 IMPRESSION: 1. No evidence of pulmonary embolism. 2. Prominent consolidative opacity within the left upper lobe extending to the lingula and medial left lower lobe. Finding appears most suggestive of infection or inflammation such as pneumonia. Recommend interval followup study to resolution and exclude presence of underlying mass lesion. Dictated by: Beatrice Alvarado M.D. on 03/18/2017 at 20:51 Chest x-ray performed 03/18/2017 IMPRESSION: Left upper/lingula or opacity. This may represent pneumonia. Recommend interval follow to document resolution and exclude underlying mass lesion. Dictated by: Beatrice Alvarado M.D. on 03/18/2017 at 18:31 Assessment & Plan 51-year-old woman with history of hypertension depression presents with almost a week of worsening fevers chills shortness of breath now cough found to be hypotensive, tachypneic, tachycardic, elevated white count with x-ray and CT suggestive of pneumonia. Acute severe Sepsis, present on admission, resolved White count 14.2 with left shift, heart rate 105, blood pressure 92/60, respiratory rate 23, x-ray and chest CT suggestive of pneumonia Blood pressure responded to 2 L IV fluid remained tachycardic and febrile Blood cultures 2, IV fluids, normal saline 125 mL per hour UA + Culture pending. Urine culture is now demonstrated lesion now likely cause of patient's septic condition. Legionella pneumonia active. Evidenced by elevated white blood cell count, fevers, chills, cough, and x-ray and CT consolidation suggesting infection. Urine Legionella positive Patient has now been continued only on azithromycin, ceftriaxone discontinued as needed provisional type pneumonia is. Continue Acetaminophen 650 mg every 6 hours as needed for fever Transition to azithromycin tomorrow in anticipation of discharge. Acute Hyponatremia, present on admission, active Serum sodium 123 on admission but upper extremity and now within normal limits. Intravenous fluids be continued at 125 mL per hour through admission, given increasing by mouth intake and plan for discharge home tomorrow we will try outpatient off intravenous fluids at this time. Acute kidney injury, present on admission, active Serum creatinine was 1.11, most likely due to hypotension and poor oral intake Received 2 L fluid boluses, 125 mL per hour maintenance fluid now discontinued. Acute kidney injury is resolved Acute Elevated transaminase, present on admission, active ALT 57, attributed to hypotension, possibly sign of chronic alcoholism and developing cirrhosis though less likely. Likely related to Legionella infection continue to trend. Chronic Hypertension, not present on admission, stable Hold patient's lisinopril while being treated for sepsis Depression POA, stable Continue venlafaxine from outpatient Tobacco abuse, chronic, active Tobacco cessation education Nicotine patch daily Follow-up chest x-ray 6-8 weeks for resolution of opacities Concern for alcohol withdrawal, POA, stable Patient reportedly drinks 2-3 drinks a night, last drink was described as being a couple of days ago Monitor for signs and symptoms of alcohol withdrawal, if they present themselves initiate CIWA protocol. No evidence of alcohol withdrawal overnight Patient admitted under inpatient status with expected length of stay > 2 midnights for severity of present symptoms, complexities of treatment plan and risk for adverse events Pain Evaluation: Adequate Pain Control GI Prophylaxis: Not indicated VTE Prophylaxis: Sub-Q Heparin (Unfractionated) Resuscitation Status: CPR: Attempt Resuscitation Time spent 25 minutes Mj Tatum DO Mar 20, 2017 15:03
--- NOTE | 2017-03-20 19:46 | NUR ---
Pt Improvement/IV Pt has dramatically improved today. Pt no longer requiring any supplemental oxygen, and c/t have good po intake, no n/v present, kinsey po abx well. Pt IV infiltrated, so removed, no IV meds ordered, only for iv hydration. Pt has had plenty of po fluids, and strongly requests to not have new IV placed. Pt has no apparent IV needs at this time. Dr fletcher for the ok, no response at this time. retail shift leader RN will page noc hospitalist.
[2017-03-21] MEDS: Heparin 5,000 Unit/mL Inj SUBQ SCH ×2 (01:00→08:33)
[2017-03-21 01:04] VITALS: PULSE 76; RESP 16; O2SAT 98
[2017-03-21] MEDS: Albuterol 2.5 mg/3 mL Inhalation Solution NEB SCH ×4 (01:04→11:19)
[2017-03-21 01:17] VITALS: BP 137/89; PULSE 78; RESP 18; O2SAT 98
[2017-03-21] MEDS: 0.9% Sodium Chloride 1,000 ML IV SCH (03:58)
[2017-03-21 05:15] VITALS: PULSE 93; RESP 18; O2SAT 98
[2017-03-21 05:21] VITALS: BP_SYST 157; PULSE 76; RESP 18; O2SAT 97
--- NOTE | 2017-03-21 05:24 | NUR ---
Respiratory Pt on RA overnight with good oxygen saturation. Pt denies any shortness of breath. Lung sounds clear.
[2017-03-21 07:28] VITALS: PULSE 87; RESP 16; O2SAT 93
[2017-03-21] MEDS: Venlafaxine XR 37.5 mg ER24 Capsule PO SCH (08:31)
[2017-03-21 11:25] VITALS: PULSE 70; RESP 16; O2SAT 97
--- NOTE | 2017-03-21 12:18 | PCM.DIMED ---
Discharge Instructions Date of Service Mar 21, 2017 Dates of Hospitalization Mar 18, 2017 at 20:53 Discharge Diagnosis Discharge Diagnosis Legionnaire's pneumonia Diet Discharge Diet: No restrictions Activity Discharge Activity: No restrictions Call your provider Call your provider for: Fever or Chills, Shortness of breath Patient Instructions Patient Instructions Finish antibiotics, ongoing coughing and sputum production would not be unexpected. His breathing is getting better and you are not having fevers and chills and slowly over time the sputum dissipates this is the expected outcome. Follow-up plan 51 unique primary care provider we will get an appointment that resident clinic Follow-up Provider: [facility] Follow-up with PCP in: 1 week Phill Yates MD Mar 21, 2017 12:18
[2017-03-21] MEDS ORDERED: ALBU8.5H2 INHALATION (12:19)
[2017-03-21] MEDS ORDERED: ZIT250 PO (12:19)
[2017-03-21] MEDS ORDERED: GUAI600T86 PO (12:21)
--- NOTE | 2017-03-21 13:14 | NUR ---
Discharge Note Pt denied any pain today, up ad randall in room without any difficulty. Pt expressed understanding of all instructions, medications/Rx, follow up appt. Pt provided with care notes on pneumonia and Legionnaires Disease. Pt discharged home with all belongings acompanied by son.
--- NOTE | 2017-03-21 13:57 | NUR ---
Social Work- Discharge Data: EMR reviewed. Pt is on day 3 of hospitalization. Pt discharged today. Pt resides at home with SO and is independent at baseline. Pt discharged with PO abx. Pt discharged home no needs identified via POV. Assessment: Pt who is independent at baseline. Plan: Pt discharged home no needs identified via POV. HARJINDER Paluino
--- NOTE | 2017-03-21 18:50 | PCM.DC.MED ---
Discharge Summary Date of Service Mar 21, 2017 Dates of Hospitalization Date of Hospital Admission Mar 18, 2017 at 20:53 Date of Discharge: Mar 21, 2017 Providers: Admitting Physician: Michele Chen MD Primary Care Physician: Nopdebbi Attending Physician: Michele Chen MD Diagnosis at Time of Discharge Diagnosis at Time of Discharge Legionnaire's pneumonia Consultations Infectious disease Dr. Hinojosa Procedures XRay, CTs & MRIs CT thorax angiogram performed 03/18/2017 IMPRESSION: 1. No evidence of pulmonary embolism. 2. Prominent consolidative opacity within the left upper lobe extending to the lingula and medial left lower lobe. Finding appears most suggestive of infection or inflammation such as pneumonia. Recommend interval followup study to resolution and exclude presence of underlying mass lesion. Dictated by: Beatrice Alvarado M.D. on 03/18/2017 at 20:51 Chest x-ray performed 03/18/2017 IMPRESSION: Left upper/lingula or opacity. This may represent pneumonia. Recommend interval follow to document resolution and exclude underlying mass lesion. Dictated by: Beatrice Alvarado M.D. on 03/18/2017 at 18:31 Brief History Jaz Powell , 51-year-old woman with history of depression, hypertension, and 6 days of feeling warm, cold sweats, and diagnosed 2 days ago with pneumonia given a prescription for azithromycin from urgent care, however did not fill the prescription. Today she reports feeling worse and went to the emergency department where she reports fever, chills, shortness of breath, cough , cold sweats, headache, lightheadedness, nausea. She has not been around anybody else with similar symptoms, she has been in every day smoker since 14 years old, with a family history of cancer in her mother unknown type. No recent travel, denies any rashes, dysuria, no chest pain, no constipation or diarrhea. In the ER, initial vital signs were 37.1, 108, 23, 92/60, 97% on room air, she received IV fluids roughly 3 hour later is temperature had gone up to 39.5, remained tachycardia at 105, respiratory rate 24, 128/82, 95% on room air. WBC 14.2, neutrophils 86.7%, sodium 123, chloride 84, creatinine 1.11, glucose 124, lactic acid 1.6, ALT 57, BNP 251, troponin negative. X-ray was performed showed left upper/lingula opacity, [place] chest CT was performed and showed no evidence of pulmonary embolism, however "consolidative opacity in the left upper lobe descending to the lingula and medial left lower lobe... Suggestive of infection or inflammation such as pneumonia." She was given 2 L IV fluid, 500 mg IV azithromycin, and 2 g ceftriaxone IV, admitted for community-acquired pneumonia and sepsis. Hospital Course 51-year-old woman with history of hypertension depression presents with almost a week of worsening fevers chills shortness of breath now cough found to be hypotensive, tachypneic, tachycardic, elevated white count with x-ray and CT suggestive of pneumonia. 03/21 I met this patient on the date of discharge she was ambulatory on room air doing much better. Apparently she was quite ill/septic on presentation. We do not have Legionella antigen on her, however she is responding to azithromycin 500 mg daily she should get a 10 day course which will be completed on 03/28. Might consider a follow-up chest x-ray in a month or 2 to verify resolution as her CT scan is quite impressive. The remainder of her lab work never looked like much. Legionella pneumonia active. Evidenced by elevated white blood cell count, fevers, chills, cough, and x-ray and CT consolidation suggesting infection. Urine Legionella positive Patient has now been continued only on azithromycin, ceftriaxone discontinued as needed provisional type pneumonia is. Continue Acetaminophen 650 mg every 6 hours as needed for fever Transition to azithromycin tomorrow in anticipation of discharge. Acute severe Sepsis, present on admission, resolved White count 14.2 with left shift, heart rate 105, blood pressure 92/60, respiratory rate 23, x-ray and chest CT suggestive of pneumonia Blood pressure responded to 2 L IV fluid remained tachycardic and febrile Blood cultures 2, IV fluids, normal saline 125 mL per hour UA + Culture pending. Urine culture is now demonstrated lesion now likely cause of patient's septic condition. Acute Hyponatremia, present on admission, active Serum sodium 123 on admission but upper extremity and now within normal limits. Intravenous fluids be continued at 125 mL per hour through admission, given increasing by mouth intake and plan for discharge home tomorrow we will try outpatient off intravenous fluids at this time. Acute kidney injury, present on admission, active Serum creatinine was 1.11, most likely due to hypotension and poor oral intake Received 2 L fluid boluses, 125 mL per hour maintenance fluid now discontinued. Acute kidney injury is resolved Acute Elevated transaminase, present on admission, active ALT 57, attributed to hypotension, possibly sign of chronic alcoholism and developing cirrhosis though less likely. Likely related to Legionella infection continue to trend. Chronic Hypertension, not present on admission, stable Hold patient's lisinopril while being treated for sepsis Depression POA, stable Continue venlafaxine from outpatient Tobacco abuse, chronic, active Tobacco cessation education Nicotine patch daily Follow-up chest x-ray 6-8 weeks for resolution of opacities Concern for alcohol withdrawal, POA, stable Patient reportedly drinks 2-3 drinks a night, last drink was described as being a couple of days ago Monitor for signs and symptoms of alcohol withdrawal, if they present themselves initiate CIWA protocol. No evidence of alcohol withdrawal overnight Patient admitted under inpatient status with expected length of stay > 2 midnights for severity of present symptoms, complexities of treatment plan and risk for adverse events Exam Vital Signs (Last) Date Time Temp Pulse Resp B/P Pulse Ox O2 Delivery O2 Flow Rate FiO2 03/21/17 11:25 70 16 97 Room Air 03/21/17 05:21 36.4 157/ 03/20/17 08:33 3.00 Exam Gen.- A+ O 3 no apparent distress. Well-appearing female ambulating Head-atraumatic/normocephalic Eyes- open conjunctiva clear, pupils equal, nonicteric Mouth- no deformity of lips ENT- ears no deformity, nose no deformity Neck- supple/trach midline CVS- RRR no murmur or gallop Lungs- CTA GI- NABS/NT soft Musc- moving 4 no obvious deformity Neuro- cranial nerves II through XII intact to gross examination, nonfocal Skin- warm and dry, no rashes/lesions/wounds noted Psych- pleasant and appropriate, Test 03/18/17 18:01 03/18/17 19:24 03/19/17 02:55 03/19/17 03:00 Hold Purple Top Tube Received (Received) Hold Blue Top Tube Received (Received) Hemoglobin A1c 5.5% (4.8-5.6) Magnesium Level 1.8mg/dL (1.6-2.6) Troponin T < 0.010ug/L (0.0-0.011) Pro-B-Type Natriuretic Peptide 251.1pg/mL (0-249) Hold Red Top Tube Received (Received) Hold [place] Top Tube Received (Received) Lactic Acid Level 1.6mmol/L (0.4-2.0) Urine Legionella pneumophilia Ag Positive (Negative) Urine Color Yellow (YELLOW) Urine Appearance Clear (CLEAR,HAZY) Urine pH 6.5 (5.0-8.0) Urine Specific [place] 1.005 (1.003-1.035) Urine Protein Tracemg/dL (NEG,TRACE) Urine Glucose (UA) Negativemg/dL (NEGATIVE) Urine Ketones 15mg/dL (NEGATIVE) Urine Occult Blood Large (NEGATIVE) Urine Nitrite Negative (NEGATIVE) Urine Bilirubin Negative (NEGATIVE) Urine Urobilinogen 1.0mg/dL (NORMAL) Urine Leukocyte Esterase Negative (NEGATIVE) Urine RBC 11-50/hpf (0-2) Urine WBC 0-5/hpf (0-5) Urine Epithelial Cells Few/hpf (NONE-MOD) Urine Crystals None seen (NONE SEEN) Urine Bacteria Few/hpf (NONE-FEW) Urine Hyaline Casts None/lpf (NONE) Urine Granular Casts None seen (NONE SEEN) Urine Waxy Casts None seen (NONE SEEN) Urine Red Blood Cell Casts None seen (NONE SEEN) Urine White Blood Cell Casts None seen (NONE SEEN) Urine Mucus None seen (None Seen) Urine Trichomonas None seen (NONE SEEN) Urine Yeast None (NONE SEEN) Urinalysis Comment None Urine Culture Reflexed Not indicated Test 03/19/17 06:09 03/19/17 11:05 03/20/17 06:18 03/21/17 06:20 Total Bilirubin 0.3mg/dL (0.0-1.2) Aspartate Amino Transf (AST/SGOT) 50U/L (0-50) Alanine Aminotransferase (ALT/SGPT) 48U/L (0-32) Alkaline Phosphatase 107U/L (25-150) Total Protein 5.7g/dL (6.4-8.4) Albumin 2.8g/dL (3.4-5.0) Hepatitis C Antibody <0.1s/co ratio (0.0-0.9) HIV (1&2) Ag and Ab, 4th Generation Non reactive (Non Reactive) White Blood Count 9.5th/mm3 (3.8-10.1) Red Blood Count 3.27mil/mm3 (3.90-5.20) Hemoglobin 10.8g/dL (12.0-15.6) Hematocrit 30.7% (35.0-46.0) Mean Corpuscular Volume 93.9fL (81-100) Mean Corpuscular Hemoglobin 33.0pg (27.0-35.0) Mean Corpuscular Hemoglobin Concent 35.2% (32.0-37.0) Red Cell Distribution Width 12.4% (12.3-15.4) Platelet Count 248bil/L (150-400) Neutrophils (%) (Auto) 80.2% (40-74) Lymphocytes (%) (Auto) 11.5% (14-46) Monocytes (%) (Auto) 6.3% (4-12) Eosinophils (%) (Auto) 0.1% (0-5) Basophils (%) (Auto) 0.2% (0-3) Sodium Level 135mEq/L (134-144) Potassium Level 3.5mEq/L (3.5-5.2) Chloride Level 99mEq/L (97-108) Carbon Dioxide Level 21mmol/L (18-29) Blood Urea Nitrogen 5mg/dL (6-24) Creatinine 0.40mg/dL (0.57-1.00) Estimat Glomerular Filtration Rate 240mL/min (>59) Glucose Level 121mg/dL (60-99) Calcium Level 8.1mg/dL (8.5-10.1) Procalcitonin 0.25ng/mL (0.00-0.08) Discharge Medications Discharge Medications Azithromycin (Zithromax) 250 Mg Tablet 500 MG PO DAILY Prescribed by: KARON YATES MD Cholecalciferol (Vitamin D3) (Vitamin D3) 1,000 Unit Tab.chew 1,000 UNIT PO DAILY (Reported) Guaifenesin (Guaifenesin ER) 600 Mg Tab.er.12h 1,200 MG PO BID Prescribed by: KARON YATES MD Lisinopril (Lisinopril) 10 Mg Tablet 10 MG PO DAILY (Reported) Multivitamin (Once Daily) 1 Each Tablet 1 EACH PO DAILY (Reported) Venlafaxine ER (Venlafaxine ER) 37.5 Mg Cap.er.24h 37.5 MG PO QAM (Reported) As needed Acetaminophen (Acetaminophen) 500 Mg Tablet 500-1,000 MG PO Q6H PRN PRN For Pain (Reported) Acyclovir (Acyclovir) 400 Mg Tablet 400 MG PO TID x 7 days PRN PRN herpes ( Reported) Albuterol HFA (Proair HFA) 8.5 Gm Hfa.aer.ad 2 PUFFS INHALATION Q4H PRN PRN For Shortness of Breath Prescribed by: KARON YATES MD Ibuprofen (Ibuprofen) 600 Mg Tablet 600 MG PO q6 hours PRN PRN For Pain ( Reported) Followup Plan Disposition: To home Follow-up plan It would appear you already have a primary care provider whose name we do not know as you have prescriptions. Please make sure you see them in the next week or 2. Discharge Diet: No restrictions Discharge Activity: No restrictions Patient Instructions Finish antibiotics, ongoing coughing and sputum production would not be unexpected. His breathing is getting better and you are not having fevers and chills and slowly over time the sputum dissipates this is the expected outcome. Follow-up Provider: [facility] Follow-up with PCP in: 1 week Time spent Greater than 30 minutes Karon Yates MD Mar 21, 2017 18:50
== END 2017-03-21 13:15 | disposition home or self-care (01) | DRG 871 ==
LOC: SED 17:34 → EDBD 17:34 → MOC 20:53
PROVIDERS: ADMIT Hospitalist; ATTEND Hospitalist
DX: A41.9 Sepsis, unspecified organism (principal); A48.1 Legionnaires' disease; E87.1 Hypo-osmolality and hyponatremia; N17.9 Acute kidney failure, unspecified; R65.20 Severe sepsis without septic shock; I10 Essential (primary) hypertension; F32.9 Major depressive disorder, single episode, unspecified; F17.210 Nicotine dependence, cigarettes, uncomplicated